=== PATIENT | male | born 1990 | race American Indian/Alaskan Native ===

== ENCOUNTER 2016-12-01 01:54 | Emergency (ER) | payer MEDICAID ==
[2016-12-01 02:01] VITALS: BP 125/91
[2016-12-01] MEDS ORDERED: Ibuprofen 600 MG Tab PO ONE (02:30)
--- NOTE | 2016-12-01 02:36 | EDM.PDOC ---
ED HPI GENERAL MEDICAL PROBLEM - General Chief Complaint: ENT Problem Stated Complaint: EAR PAIN Time Seen by Provider: 12/01/16 02:15 Source of Information: Reports: Patient History Limitations: Reports: No Limitations - History of Present Illness INITIAL COMMENTS - FREE TEXT/NARRATIVE: c/o pain to left ear. Has not taken anything for pain, Has been on Neomycin drops for one week. Pain worse tonight at bedtime. Location: Reports: Other (left ear) Quality: Reports: Pressure, Throbbing Associated Symptoms: Denies: Fever/Chills, Loss of Appetite, Nausea/Vomiting Left Ear Pain Score (Numeric/FACES): 9 - Related Data Allergies Allergy/AdvReac Type Severity Reaction Status Date / Time No Known Allergies Allergy Verified 12/01/16 02:00 Home Meds: Home Meds Hydrocort/Neomycin/Polymyxin B [Cortisporin Otic Susp] 2 drop OT TID 12/01/16 [ History] Past Medical History Cardiovascular History: Reports: Heart Murmur - Infectious Disease History Infectious Disease History: Reports: MRSA Social & Family History - Tobacco Use Smoking Status *Q: Current Every Day Smoker Years of Tobacco use: 10 Packs/Tins Daily: 0.3 Used Tobacco, but Quit: No Second Hand Smoke Exposure: Yes - Caffeine Use Caffeine Use: Reports: Soda - Alcohol Use Days Per Week of Alcohol Use: 6 Number of Drinks Per Day: 36 Total Drinks Per Week: 216 - Recreational Drug Use Recreational Drug Use: Yes Drug Use in Last 12 Months: Yes Recreational Drug Type: Reports: Marijuana/Hashish Recreational Drug Use Frequency: Socially ED ROS ENT - Review of Systems Review Of Systems: See Below Constitutional: Reports: No Symptoms HEENT: Reports: Ear Pain (left ear pain worse tonight at bedtime, has not tried any OTC for pain) Respiratory: Reports: No Symptoms Cardiovascular: Reports: No Symptoms GI/Abdominal: Reports: No Symptoms Neurological: Reports: No Symptoms ED EXAM, ENT - Physical Exam Exam: See Below Exam Limited By: No Limitations General Appearance: Alert, Mild Distress Ears: Hearing Grossly Normal, TM Fluid (mild left). No: Normal Canal (left swollen), Auricular Ecchymosis, Canal Discharge Nose: Normal Inspection Mouth/Throat: Normal Inspection Head: Atraumatic, Normocephalic Neck: Full Range of Motion, Lymphadenopathy (L). No: Lymphadenopathy (R) Respiratory/Chest: No Respiratory Distress, Lungs Clear, Normal Breath Sounds Cardiovascular: Normal Peripheral Pulses, Regular Rate, Rhythm Back: Normal Inspection, Full Range of Motion Extremities: Normal Inspection Neurological: Alert, Oriented Psychiatric: Flat Affect Course - Vital Signs Last Recorded V/S: Last Vital Signs Temp 97.5 F 12/01/16 01:57 Pulse 67 12/01/16 01:57 Resp 18 12/01/16 01:57 BP 125/91 H 12/01/16 01:57 Pulse Ox 97 12/01/16 01:57 - Orders/Labs/Meds Meds: Medications Discontinued Medications Generic Name Dose Route Start Last Admin Trade Name Aleksanderq PRN Reason Stop Dose Admin Ibuprofen 600 mg 12/01/16 02:30 12/01/16 02:35 Motrin PO 12/01/16 02:31 600 mg ONETIME ONE Administration Departure - Departure Time of Disposition: 02:31 Disposition: Home, Self-Care 01 Condition: Good Clinical Impression: Otitis externa Qualifiers: Otitis externa type: unspecified type Chronicity: unspecified Laterality: left Qualified Code(s): H60.92 - Unspecified otitis externa, left ear - Discharge Information Instructions: Otitis Externa, [id number] Forms: ED Department Discharge Additional Instructions: stop neomycin ear drops ofloxacin 0.3% Rx 10 drops daily for one week Alternate tylenol 650mg and ibuprofen 600mg every 4 hours as needed for left ear pain clinic recheck on Monday
== END 2016-12-01 02:39 | disposition home or self-care (01) ==
LOC: DL.ED 01:54
DX: H60.92 Unspecified otitis externa, left ear (principal); F17.210 Nicotine dependence, cigarettes, uncomplicated
CPT/HCPCS: 99282; A9270

== ENCOUNTER 2017-03-11 23:23 | Emergency (ER) | payer MEDICAID ==
[2017-03-11] MEDS ORDERED: Acetaminophen/HYDROcodone 325-10 MG Tab PO ONE (23:24)
[2017-03-11 23:42] VITALS: BP 130/85
[2017-03-11] MEDS ORDERED: Clindamycin HCl 150 MG Cap PO ONE (23:43)
--- NOTE | 2017-03-11 23:46 | EDM.PDOC ---
ED HPI GENERAL MEDICAL PROBLEM - General Chief Complaint: ENT Problem Stated Complaint: EAR ACHE Time Seen by Provider: 03/11/17 23:44 Source of Information: Reports: Patient History Limitations: Reports: No Limitations - History of Present Illness INITIAL COMMENTS - FREE TEXT/NARRATIVE: pain in right ear and jaw and tooth Right Ear Pain Score (Numeric/FACES): 9 - Related Data Allergies Allergy/AdvReac Type Severity Reaction Status Date / Time No Known Allergies Allergy Verified 03/11/17 23:38 Past Medical History HEENT History: Reports: None Cardiovascular History: Reports: Heart Murmur Respiratory History: Reports: None Gastrointestinal History: Reports: None Genitourinary History: Reports: None Musculoskeletal History: Reports: None Neurological History: Reports: None Psychiatric History: Reports: None Endocrine/Metabolic History: Reports: None Hematologic History: Reports: None Immunologic History: Reports: None Oncologic (Cancer) History: Reports: None Dermatologic History: Reports: None - Infectious Disease History Infectious Disease History: Reports: MRSA Social & Family History - Tobacco Use Smoking Status *Q: Light Tobacco Smoker Years of Tobacco use: 5 Packs/Tins Daily: 0.2 Used Tobacco, but Quit: No Second Hand Smoke Exposure: Yes - Caffeine Use Caffeine Use: Reports: Soda - Alcohol Use Days Per Week of Alcohol Use: 6 Number of Drinks Per Day: 36 Total Drinks Per Week: 216 - Recreational Drug Use Recreational Drug Use: No Drug Use in Last 12 Months: Yes Recreational Drug Type: Reports: Marijuana/Hashish Recreational Drug Use Frequency: Socially ED ROS ENT - Review of Systems Review Of Systems: ROS reveals no pertinent complaints other than HPI. ED EXAM, ENT - Physical Exam Exam: See Below Exam Limited By: No Limitations General Appearance: Alert, WD/WN, Mild Distress, Other (tearful) Ears: TM Dullness, TM Erythema, Other (right) Mouth/Throat: Dental Abcess, Dental Pain, Dental Tenderness Head: Atraumatic Neck: Non-Tender, Full Range of Motion Respiratory/Chest: No Respiratory Distress Cardiovascular: Regular Rate, Rhythm GI/Abdominal: Soft, Non-Tender Neurological: Alert, Oriented, Normal Cognition, Normal Gait, No Motor/Sensory Deficits Psychiatric: Tearful Skin: Warm, Dry, Normal Color Lymphatic: No Adenopathy Course - Vital Signs Last Recorded V/S: Last Vital Signs Temp 36.6 C 03/11/17 23:39 Pulse 82 03/11/17 23:39 Resp 16 03/11/17 23:39 BP 130/85 03/11/17 23:39 Pulse Ox 98 03/11/17 23:39 - Orders/Labs/Meds Orders: Active Orders 24 hr Category Date Time Status Clindamycin HCl [Cleocin] Med 03/11/17 23:43 Once 300 mg PO ONETIME ONE Departure - Departure Time of Disposition: 23:45 Disposition: Home, Self-Care 01 Condition: Good Clinical Impression: Dental abscess, Dental caries Otitis media Qualifiers: Otitis media type: suppurative Chronicity: acute Laterality: right Recurrence: not specified as recurrent Spontaneous tympanic membrane rupture: without spontaneous rupture Qualified Code(s): H66.001 - Acute suppurative otitis media without spontaneous rupture of ear drum, right ear - Discharge Information Instructions: Dental Abscess, [id number] Additional Instructions: 1) avoid solid foods 2) see Dentist Monday rx given; clindamycin 150mg qid x 40 vicodin 5/325mg bid prn x 12 - My Orders Last 24 Hours: My Active Orders 03/11/17 23:43 Clindamycin HCl [Cleocin] 300 mg PO ONETIME ONE - Assessment/Plan Last 24 Hours: My Active Orders 03/11/17 23:43 Clindamycin HCl [Cleocin] 300 mg PO ONETIME ONE
[2017-03-11] MEDS ORDERED: Acetaminophen/HYDROcodone 325-10 MG Tab ONE (23:47)
== END 2017-03-11 23:52 | disposition home or self-care (01) ==
LOC: DL.ED 23:23
DX: H66.001 Acute suppurative otitis media without spontaneous rupture of ear drum, right ear (principal); K04.7 Periapical abscess without sinus; K02.9 Dental caries, unspecified; F17.210 Nicotine dependence, cigarettes, uncomplicated
CPT/HCPCS: 99282; A9270

== ENCOUNTER 2017-03-18 11:37 | Emergency (ER) | payer MEDICAID ==
[2017-03-18 12:25] VITALS: BP 120/79
--- NOTE | 2017-03-18 12:59 | EDM.PDOC ---
ED HPI GENERAL MEDICAL PROBLEM - General Chief Complaint: ENT Problem Stated Complaint: RT EAR PAIN Time Seen by Provider: 03/18/17 12:58 Source of Information: Reports: Patient History Limitations: Reports: No Limitations - History of Present Illness INITIAL COMMENTS - FREE TEXT/NARRATIVE: 26 yo [place] Male c/o right ear pain and sinus congestion Onset Date: 03/12/17 Onset Time: 12:00 Duration: Day(s): Location: Reports: Face Quality: Reports: Ache Severity: Moderate Improves with: Reports: None Worsens with: Reports: None Associated Symptoms: Reports: No Other Symptoms Right Ear Pain Score (Numeric/FACES): 8 - Related Data Allergies Allergy/AdvReac Type Severity Reaction Status Date / Time No Known Allergies Allergy Verified 03/18/17 12:23 Home Meds: Home Meds . [No Known Home Meds] 03/18/17 [History] Past Medical History HEENT History: Reports: None Cardiovascular History: Reports: Heart Murmur Respiratory History: Reports: None Gastrointestinal History: Reports: None Genitourinary History: Reports: None Musculoskeletal History: Reports: None Neurological History: Reports: None Psychiatric History: Reports: None Endocrine/Metabolic History: Reports: None Hematologic History: Reports: None Immunologic History: Reports: None Oncologic (Cancer) History: Reports: None Dermatologic History: Reports: None - Infectious Disease History Infectious Disease History: Reports: MRSA Social & Family History - Family History Family Medical History: Noncontributory - Tobacco Use Smoking Status *Q: Light Tobacco Smoker Years of Tobacco use: 5 Packs/Tins Daily: 0.2 Used Tobacco, but Quit: No Second Hand Smoke Exposure: Yes - Caffeine Use Caffeine Use: Reports: Soda - Alcohol Use Days Per Week of Alcohol Use: 6 Number of Drinks Per Day: 36 Total Drinks Per Week: 216 - Recreational Drug Use Recreational Drug Use: No Drug Use in Last 12 Months: Yes Recreational Drug Type: Reports: Marijuana/Hashish Recreational Drug Use Frequency: Socially ED ROS ENT - Review of Systems Review Of Systems: See Below Constitutional: Reports: No Symptoms HEENT: Reports: Ear Pain (right) Respiratory: Reports: No Symptoms Cardiovascular: Reports: No Symptoms Endocrine: Reports: No Symptoms GI/Abdominal: Reports: No Symptoms : Reports: No Symptoms Musculoskeletal: Reports: No Symptoms Skin: Reports: No Symptoms Neurological: Reports: No Symptoms Psychiatric: Reports: No Symptoms Hematologic/Lymphatic: Reports: No Symptoms Immunologic: Reports: No Symptoms ED EXAM, ENT - Physical Exam Exam: See Below Exam Limited By: No Limitations General Appearance: Alert, WD/WN, No Apparent Distress Eye Exam: Bilateral Eye: EOMI, PERRL Ears: Normal External Exam, TM Erythema (right) Nose: Normal Inspection Mouth/Throat: Normal Inspection, Normal Gums Head: Atraumatic, Normocephalic Neck: Normal Inspection, Supple, Non-Tender, Full Range of Motion Respiratory/Chest: No Respiratory Distress, Lungs Clear, Normal Breath Sounds Cardiovascular: Normal Peripheral Pulses, Regular Rate, Rhythm GI/Abdominal: Normal Bowel Sounds Back: Normal Inspection Extremities: Normal Inspection, Normal Range of Motion Neurological: Alert, Oriented, CN II-XII Intact Psychiatric: Normal Affect, Normal Mood Skin: Warm, Dry, Intact, Normal Color Lymphatic: No Adenopathy Course - Vital Signs Last Recorded V/S: Last Vital Signs Temp 36.7 C 03/18/17 12:24 Pulse 64 03/18/17 12:24 Resp 16 03/18/17 12:24 BP 120/79 03/18/17 12:24 Pulse Ox 98 03/18/17 12:24 Departure - Departure Time of Disposition: 13:13 Disposition: Home, Self-Care 01 Condition: Good Clinical Impression: Otitis media Qualifiers: Otitis media type: suppurative Chronicity: acute Laterality: right Recurrence: not specified as recurrent Spontaneous tympanic membrane rupture: without spontaneous rupture Qualified Code(s): H66.001 - Acute suppurative otitis media without spontaneous rupture of ear drum, right ear - Discharge Information Forms: ED Department Discharge Additional Instructions: Rest Increase fluids ( Water / Juice) Take Medication as prescribed only AMOXIL 500mg BID # 20 CLARITIN 10mg QD # 10 F/U w/ PCP
== END 2017-03-18 13:22 | disposition home or self-care (01) ==
LOC: DL.ED 11:37
DX: H66.001 Acute suppurative otitis media without spontaneous rupture of ear drum, right ear (principal); F17.210 Nicotine dependence, cigarettes, uncomplicated
CPT/HCPCS: 99282

== ENCOUNTER 2017-05-03 15:14 | Emergency (ER) | payer MEDICAID ==
--- NOTE | 2017-05-03 15:55 | EDM.PDOC ---
ED HPI GENERAL MEDICAL PROBLEM - General Chief Complaint: General Stated Complaint: LILA [phone] Time Seen by Provider: 05/03/17 15:40 Source of Information: Reports: Patient History Limitations: Reports: No Limitations - History of Present Illness INITIAL COMMENTS - FREE TEXT/NARRATIVE: This 26 yo male patient reports to the ED with an abscess on the right side of his testicles. The patient reports he was originally seen by a provider at the [facility] on Monday (04/28/17) and started on oral antibiotics. The patient reports he has been taking his antibiotics as prescribed. The patient reports the area has been draining since Monday. The patient reports he was advised to come to the ED to have an ultrasound of the area. Onset Date: 04/28/17 Duration: Constant, Improving Location: Reports: Other (right lateral testicle ) Quality: Reports: Ache, Dull Severity: Moderate Improves with: Reports: None Worsens with: Reports: None Associated Symptoms: Reports: No Other Symptoms Right Perineal Area Pain Score (Numeric/FACES): 8 - Related Data Allergies Allergy/AdvReac Type Severity Reaction Status Date / Time No Known Allergies Allergy Verified 03/18/17 12:23 Home Meds: Home Meds Ibuprofen [Motrin Ib] mg PO Q4HR 05/03/17 [History] Sulfamethoxazole/Trimethoprim [Bactrim Ds Tablet] 1 tab PO BID 05/03/17 [History ] Past Medical History HEENT History: Reports: None Cardiovascular History: Reports: Heart Murmur Respiratory History: Reports: None Gastrointestinal History: Reports: None Genitourinary History: Reports: None Musculoskeletal History: Reports: None Neurological History: Reports: None Psychiatric History: Reports: None Endocrine/Metabolic History: Reports: None Hematologic History: Reports: None Immunologic History: Reports: None Oncologic (Cancer) History: Reports: None Dermatologic History: Reports: None - Infectious Disease History Infectious Disease History: Reports: MRSA Social & Family History - Family History Family Medical History: Noncontributory - Tobacco Use Smoking Status *Q: Light Tobacco Smoker Years of Tobacco use: 9 Packs/Tins Daily: 0.1 Used Tobacco, but Quit: No Second Hand Smoke Exposure: Yes - Caffeine Use Caffeine Use: Reports: Soda - Alcohol Use Days Per Week of Alcohol Use: 6 Number of Drinks Per Day: 36 Total Drinks Per Week: 216 - Recreational Drug Use Recreational Drug Use: No Drug Use in Last 12 Months: Yes Recreational Drug Type: Reports: Marijuana/Hashish Recreational Drug Use Frequency: Socially ED ROS GENERAL - Review of Systems Review Of Systems: ROS reveals no pertinent complaints other than HPI. ED EXAM, GENERAL - Physical Exam Exam: See Below Exam Limited By: No Limitations General Appearance: Alert, WD/WN, Mild Distress Eye Exam: Bilateral Eye: EOMI, Normal Inspection, PERRL Ears: Normal External Exam, Normal Canal, Hearing Grossly Normal, Normal TMs Nose: Normal Inspection, Normal Mucosa, No Blood Throat/Mouth: Normal Inspection, Normal Lips, Normal Teeth, Normal Gums, Normal Oropharynx, Normal Voice, No Airway Compromise Head: Atraumatic, Normocephalic Neck: Normal Inspection, Supple, Non-Tender, Full Range of Motion Respiratory/Chest: No Respiratory Distress, Lungs Clear, Normal Breath Sounds, No Accessory Muscle Use, Chest Non-Tender Cardiovascular: Normal Peripheral Pulses, Regular Rate, Rhythm, No Edema, No Gallop, No JVD, No Murmur, No Rub GI/Abdominal: Normal Bowel Sounds, Soft, Non-Tender, No Organomegaly, No Distention, No Abnormal Bruit, No Mass (Male) Exam: No Hernia, Circumcised, Scrotum Tenderness (R), Other (The patient has some induration, but no current drainage from the area. ) Rectal (Males) Exam: Deferred Back Exam: Normal Inspection, Full Range of Motion, NT Extremities: Normal Inspection, Normal Range of Motion, Non-Tender, Normal Capillary Refill, No Pedal Edema Neurological: Alert, Oriented, CN II-XII Intact, Normal Cognition, Normal Gait, Normal Reflexes, No Motor/Sensory Deficits Psychiatric: Normal Affect, Normal Mood Skin Exam: Warm, Dry, Intact, Normal Color, No Rash Lymphatic: No Adenopathy Course - Vital Signs Last Recorded V/S: Last Vital Signs Temp 36.8 C 05/03/17 17:44 Pulse 63 05/03/17 17:44 Resp 16 05/03/17 17:44 BP 107/55 L 05/03/17 17:44 Pulse Ox 98 05/03/17 17:44 - Orders/Labs/Meds Orders: Active Orders 24 hr Category Date Time Status Vancomycin [Vancocin] 1 gm Med 05/03/17 16:35 Active Sodium Chloride 0.9% [Normal Saline] 250 ml IV ONETIME Medication Orders Vancomycin HCl 1 gm/ Sodium (Chloride) 250 mls @ 167 mls/hr IV ONETIME ONE Stop: 05/03/17 18:04 Last Admin: 05/03/17 16:41 Dose: 167 mls/hr Labs: Laboratory Tests 05/03/17 05/03/17 Range/Units 15:55 15:55 WBC 7.8 (5.0-10.0) 10^3/uL RBC 5.05 (4.6-6.2) 10^6/uL Hgb 14.5 D (14.0-18.0) g/dL Hct 43.9 (40.0-54.0) % MCV 86.9 D (80-100) fL MCH 28.7 (27.0-34.0) pg MCHC 33.0 (33.0-35.0) g/dL Plt Count 421 D (150-450) 10^3/uL Neut % (Auto) 56.7 (42.2-75.2) % Lymph % (Auto) 25.5 (20.5-50.1) % Sunflower % (Auto) 14.2 H (2-8) % Eos % (Auto) 2.8 (1.0-3.0) % Baso % (Auto) 0.8 (0.0-1.0) % Add Manual Diff Yes Neutrophils % (Manual) 52 (42-75) % Lymphocytes % (Manual) 34 (20-50) % Monocytes % (Manual) 12 H (2-8) % Eosinophils % (Manual) 2 (1-3) % Sodium 137 (135-145) mmol/L Potassium 3.9 (3.6-5.0) mmol/L Chloride 102 (101-111) mmol/L Carbon Dioxide 26.0 (21.0-31.0) mmol/L Anion Gap 12.9 BUN 12 (7-18) mg/dL Creatinine 0.6 (0.6-1.3) mg/dL Est Cr Clr Drug Dosing 156.22 mL/min Estimated GFR (MDRD) > 60 BUN/Creatinine Ratio 20.00 Glucose 96 (74-105) mg/dL Calcium 8.6 (8.4-10.2) mg/dl Total Bilirubin 0.3 (0.2-1.0) mg/dL AST 25 (10-42) IU/L ALT 23 (10-60) IU/L Alkaline Phosphatase 87 (42-121) IU/L Total Protein 7.1 (6.7-8.2) g/dl Albumin 3.7 (3.2-5.5) g/dl Globulin 3.4 Albumin/Globulin Ratio 1.09 Meds: Medications Generic Name Dose Route Start Last Admin Trade Name Freq PRN Reason Stop Dose Admin Vancomycin HCl 1 gm/ Sodium 250 mls @ 167 mls/hr 05/03/17 16:35 05/03/17 16: 41 Chloride IV 05/03/17 18:04 167 mls/hr ONETIME ONE Administration Departure - Departure Time of Disposition: 18:03 Disposition: Home, Self-Care 01 Condition: Fair Clinical Impression: Abscess of right groin - Discharge Information Instructions: Abscess, [id number] Forms: ED Department Discharge Care Plan Goals: The patient was advised of the examination and lab results during the visit. The patient was given an IV dose of Vancomycin while in the ED. The patient was encouraged to follow-up with his primary care facility for continued evaluation and further treatment. If the patient has any additional symptoms or concerns, the patient should visit his primary care facility or return to the emergency department. - My Orders Last 24 Hours: My Active Orders 05/03/17 16:35 Vancomycin [Vancocin] 1 gm Sodium Chloride 0.9% [Normal Saline] 250 ml IV ONETIME - Assessment/Plan Last 24 Hours: My Active Orders 05/03/17 16:35 Vancomycin [Vancocin] 1 gm Sodium Chloride 0.9% [Normal Saline] 250 ml IV ONETIME
[2017-05-03 16:20] LABS: CHLORIDE,CL 102 mmol/L (101-111); SODIUM,NA 137 mmol/L (135-145)
[2017-05-03 18:20] VITALS: BP 122/72
== END 2017-05-03 18:19 | disposition home or self-care (01) ==
LOC: DL.ED 15:14
DX: L02.214 Cutaneous abscess of groin (principal); F17.210 Nicotine dependence, cigarettes, uncomplicated
CPT/HCPCS: 36415; 80053; 85025; 96365; 99283; J3370; J7050

== ENCOUNTER 2020-03-28 14:20 | Emergency (ER) | payer SELFPAY ==
[2020-03-28 15:09] VITALS: BP 141/97; PULSE 82
[2020-03-28 15:35] LABS: CHLORIDE,CL 105 mmol/L (98-107); SODIUM,NA 139 mmol/L (136-145)
--- NOTE | 2020-03-30 08:01 | CR ---
PROCEDURE INFORMATION: Exam: XR Left Ribs with PA Chest, 3 Views Exam date and time: 03/28/2020 2:44 PM Age: 29 years old Clinical indication: Other: Arrow montiel area of pain; Additional info: Fall down stairs TECHNIQUE: Imaging protocol: XR Left ribs 3 views with PA chest. COMPARISON: CR Chest 1V Frontal 07/21/2016 5:17 PM FINDINGS: Lungs: Unremarkable. No consolidation. Pleural space: Unremarkable. No pleural effusion. No pneumothorax. Heart/Mediastinum: Unremarkable. No cardiomegaly. Bones/joints: Unremarkable. IMPRESSION: No acute findings.
== END 2020-03-28 16:10 | disposition home or self-care (01) ==
LOC: DL.ED 14:20
DX: S20.211A Contusion of right front wall of thorax, initial encounter (principal); S20.212A Contusion of left front wall of thorax, initial encounter; W50.3XXA Accidental bite by another person, initial encounter
CPT/HCPCS: 36415; 71101-LT; 80053; 84484; 85025; 93005; 99282; 99285-25

== ENCOUNTER 2021-08-26 19:04 | Emergency (ER) | payer BC, MEDICAID ==
[2021-08-26 19:25] VITALS: BP 133/91; PULSE 62
[2021-08-26] MEDS ORDERED: Azithromycin 250 MG Tab PO ONE (19:33)
== END 2021-08-26 19:46 | disposition home or self-care (01) ==
LOC: DL.ED 19:04
DX: J02.9 Acute pharyngitis, unspecified (principal); H65.91 Unspecified nonsuppurative otitis media, right ear; Z88.0 Allergy status to penicillin; Z72.0 Tobacco use
CPT/HCPCS: 87081; 87430; 99283; A9270

== ENCOUNTER 2022-01-10 21:03 | Emergency (ER) | payer BC, MEDICAID ==
[2022-01-10 21:15] VITALS: BP 135/101; PULSE 63
[2022-01-10] MEDS ORDERED: Lidocaine 1% 5 ML VIAL INJECT ONE (21:25)
[2022-01-10] MEDS ORDERED: Bacitracin Oint 1 GM U/D Packet TOP ONE (21:25)
[2022-01-10 22:03] LABS: ANION GAP 12.7 mEq/L (7-13)
== END 2022-01-10 23:50 | disposition home or self-care (01) ==
LOC: DL.ED 21:03
DX: L03.115 Cellulitis of right lower limb (principal); Z88.0 Allergy status to penicillin; W57.XXXA Bitten or stung by nonvenomous insect and other nonvenomous arthropods, initial encounter
CPT/HCPCS: 10060; 36415; 80053; 83605; 85025; 87040; 87070; 87205; 96365; 99283; J3370; J7050; 87077; 87186

== ENCOUNTER 2023-09-18 13:23 | Inpatient (IN) | payer MEDICAID ==
[2023-09-18] MEDS: LORazepam 2 MG/ML SDV IVPUSH ONE (14:02)
[2023-09-18] MEDS: Ondansetron 4 MG/2 ML SDV IV ONE (14:02)
[2023-09-18] MEDS: Magnesium Sulfate/Water 2 GM in Premix Bag 1 BAG IV ONE (14:03)
[2023-09-18 14:08] LABS: BASOPHILS PERCENT AUTO 0.8 % (0.0-1.0); HEMATOCRIT 51.9 % (40.0-54.0); HEMOGLOBIN 17.8 g/dL (14.0-18.0); LYMPHOCYTES PERCENT AUTO 23.8 % (20.5-50.1); MEAN CORPUSCULAR HEMOGLOBIN 28.8 pg (27.0-34.0); MEAN CORPUSCULAR HGB CONC 34.3 g/dL (33.0-35.0); MEAN CORPUSCULAR VOLUME 84.1 fL (80-100); MONOCYTES PERCENT AUTO 8.6 % (2-8); NEUTROPHILS PERCENT AUTO 65.8 % (42.2-75.2); PLATELET COUNT,PLT 294 10^3/uL (150-450); RED BLOOD CELL COUNT 6.17 10^6/uL (4.6-6.2); WHITE BLOOD CELL COUNT,WBC 7.7 10^3/uL (5.0-10.0)
[2023-09-18 14:23] LABS: PROTHROMBIN TIME 10.1 SEC (9.0-12.0); PTT,PARTIAL THROMBOPLSTIN TIME 21.8 SEC (22.0-34.0)
[2023-09-18 14:30] LABS: LACTIC ACID 5.7 mmol/L (0.4-2.0)
[2023-09-18 14:33] LABS: A/G RATIO 0.8; ALANINE AMINOTRANSFERASE,ALT 89 U/L (16-63); ALBUMIN 4.1 g/dL (3.4-5.0); ALKALINE PHOSPHATASE 177 U/L (46-116); ANION GAP 23.6 mEq/L (7-13); ASPARTATE AMNIOTRANSFERASE,AST 115 U/L (15-37); BILIRUBIN TOTAL 1.8 mg/dL (0.2-1.0); BLOOD UREA NITROGEN,BUN 16 mg/dL (7-18); BUN/CREATININE RATIO 19.5 (No establ ref range); CALCIUM 8.5 mg/dL (8.5-10.1); CARBON DIOXIDE,CO2 23 mmol/L (21-32); CHLORIDE,CL 99 mmol/L (98-107); CREATININE 0.82 mg/dL (0.70-1.30); EST CRCL DRUG DOSING (CG) 110.36 mL/min; GLUCOSE RANDOM 92 mg/dL (70-99); LIPASE 27 U/L (16-77); MAGNESIUM 1.7 mg/dL (1.8-2.4); POTASSIUM,K 3.6 mmol/L (3.5-5.1); PROTEIN TOTAL,TP 9.2 g/dL (6.4-8.2); SODIUM,NA 142 mmol/L (136-145)
[2023-09-18 14:35] LABS: ESTIMATED GFR 120 mL/min (>=60)
[2023-09-18] MEDS: MVI, Adult with Vitamin K 10 ML, Thiamine 100 MG, Folic Acid 1 MG in Lactated Ringers 1... IV ONE (14:35)
[2023-09-18] MEDS: Sodium Chloride 0.9% 10 ML Syringe FLUSH PRN (14:36)
[2023-09-18 14:48] LABS: KETONES,BLOOD NEGATIVE
[2023-09-18] MEDS ORDERED: Ondansetron 4 MG/2 ML SDV IVPUSH PRN (18:17)
[2023-09-18] MEDS ORDERED: Polyethylene Glycol 3350 Powder 17 GM Packet PO PRN (18:17)
[2023-09-18] MEDS ORDERED: Temazepam 15 MG Cap PO PRN (18:17)
[2023-09-18] MEDS ORDERED: LORazepam 2 MG/ML SDV IV PRN (18:26)
[2023-09-18] MEDS: Sodium Chloride 0.9% 1,000 ML IV SCH (19:38)
[2023-09-18] MEDS: Heparin Sodium 5,000 Units/ML Vial SUBCUT SCH (21:41)
[2023-09-19] MEDS: Pantoprazole 40 MG Tab.CR PO SCH (05:24)
[2023-09-19 05:46] LABS: BENZODIAZEPINE,URINE POSITIVE (NEGATIVE); MDMA (ECSTASY), URINE NEGATIVE (NEGATIVE); METHADONE,URINE NEGATIVE (NEGATIVE); METHAMPHETAMINES,URINE POSITIVE (NEGATIVE); OPIATES,URINE NEGATIVE (NEGATIVE)
[2023-09-19 05:47] LABS: AMPHETAMINES,URINE NEGATIVE (NEGATIVE); BARBITURATES,URINE NEGATIVE (NEGATIVE); OXYCODONE,URINE NEGATIVE (NEGATIVE); PHENCYCLIDINE,URINE NEGATIVE (NEGATIVE); TCA,URINE NEGATIVE (NEGATIVE)
[2023-09-19 05:50] LABS: APPEARANCE,URINE CLEAR (CLEAR); BILIRUBIN,URINE NEGATIVE (NEGATIVE); COLOR,URINE YELLOW (YELLOW); GLUCOSE,URINE NEGATIVE (NEGATIVE); KETONES,URINE 80 (NEGATIVE); LEUKOCYTE ESTERASE,URINE NEGATIVE (NEGATIVE); NITRITE,URINE NEGATIVE (NEGATIVE); OCCULT BLOOD,URINE NEGATIVE (NEGATIVE); PROTEIN,URINE TRACE (NEGATIVE); UROBILINOGEN,URINE 0.2 mg/dL (0.2-1.0)
[2023-09-19 06:33] LABS: BASOPHILS PERCENT AUTO 0.8 % (0.0-1.0); EOSINOPHILS PERCENT AUTO 2.3 % (1.0-3.0); HEMATOCRIT 42.3 % (40.0-54.0); HEMOGLOBIN 14.1 g/dL (14.0-18.0); LYMPHOCYTES PERCENT AUTO 21.1 % (20.5-50.1); MEAN CORPUSCULAR HGB CONC 33.3 g/dL (33.0-35.0); MEAN CORPUSCULAR VOLUME 86.9 fL (80-100); MONOCYTES PERCENT AUTO 10.6 % (2-8); NEUTROPHILS PERCENT AUTO 65.2 % (42.2-75.2); PLATELET COUNT,PLT 191 10^3/uL (150-450); RED BLOOD CELL COUNT 4.87 10^6/uL (4.6-6.2); WHITE BLOOD CELL COUNT,WBC 5.3 10^3/uL (5.0-10.0)
[2023-09-19 06:44] LABS: BACTERIA,URINE RARE /HPF (0-FEW/HPF); EPITHELIAL CELLS,URINE RARE /HPF (NOT SEEN); MUCUS,URINE FEW /LPF (NOT SEEN); RBC,URINE 0-5 /HPF (0-5); WBC,URINE 0-5 /HPF (0-5/HPF)
[2023-09-19 06:55] LABS: A/G RATIO 0.74; ALBUMIN 2.8 g/dL (3.4-5.0); ANION GAP 15.3 mEq/L (7-13); BILIRUBIN TOTAL 2.5 mg/dL (0.2-1.0); BUN/CREATININE RATIO 28.8 (No establ ref range); CALCIUM 7.4 mg/dL (8.5-10.1); CREATININE 0.59 mg/dL (0.70-1.30); EST CRCL DRUG DOSING (CG) 150.51 mL/min; MAGNESIUM 1.8 mg/dL (1.8-2.4); POTASSIUM,K 3.3 mmol/L (3.5-5.1); PROTEIN TOTAL,TP 6.6 g/dL (6.4-8.2)
[2023-09-19] MEDS: Potassium Chloride 10 MEQ Tab.ER PO ONE (08:07)
[2023-09-19] MEDS: Multivitamin Tab PO SCH (08:07)
[2023-09-19] MEDS: Thiamine 100 MG Tab PO SCH (08:07)
[2023-09-19 12:06] VITALS: BP 131/81; PULSE 71
[2023-09-20 12:47] LABS: C.TRACHOMATIS BY TMA Negative (Negative); M GENITALIUM Negative (Negative); M GENITALIUM SOURCE Urine; N.GONORRHOEAE BY TMA Negative (Negative); SOURCE Urine
== END 2023-09-19 14:15 | disposition home or self-care (01) | DRG 897 ==
LOC: DL.ED 13:23 → DL.MS 14:38 → DL.ED 17:34
PROVIDERS: ADMIT Family Medicine Adult Medicine; ATTEND Family Medicine Adult Medicine
DX: F10.239 Alcohol dependence with withdrawal, unspecified (principal); E87.20 Acidosis, unspecified; F10.229 Alcohol dependence with intoxication, unspecified; E86.0 Dehydration; K29.20 Alcoholic gastritis without bleeding; Z88.0 Allergy status to penicillin; Z79.899 Other long term (current) drug therapy
CPT/HCPCS: 36415; 80053; 80305-QW; 80307; 81001; 82009; 83605; 83690; 83735; 84100; 84443; 85025; 85610; 85730; 87491; 87563; 87591; 96365; 96366; 96368; 96375; 99222; 99238; 99284; 99285-25; A9270-GY; J1644; J2060; J2405; J3411; J3475; J3490; J7030; J7120

== ENCOUNTER 2024-06-01 16:23 | Emergency (ER) | payer MEDICAID ==
[2024-06-01] MEDS: Ondansetron 4 MG Tab.DIS PO ONE (16:56)
[2024-06-01] MEDS: Ketorolac 30 MG/ML SDV IM ONE (16:56)
[2024-06-01 17:03] LABS: BASOPHILS PERCENT AUTO 0.5 % (0.0-1.0); EOSINOPHILS PERCENT AUTO 0.2 % (1.0-3.0); HEMATOCRIT 46.4 % (40.0-54.0); HEMOGLOBIN 15.9 g/dL (14.0-18.0); MEAN CORPUSCULAR HEMOGLOBIN 27.8 pg (27.0-34.0); MEAN CORPUSCULAR HGB CONC 34.3 g/dL (33.0-35.0); MEAN CORPUSCULAR VOLUME 81.3 fL (80-100); MONOCYTES PERCENT AUTO 7.6 % (2-8); NEUTROPHILS PERCENT AUTO 77.7 % (42.2-75.2); PLATELET COUNT,PLT 269 10^3/uL (150-450); RED BLOOD CELL COUNT 5.71 10^6/uL (4.6-6.2); WHITE BLOOD CELL COUNT,WBC 6.6 10^3/uL (5.0-10.0)
[2024-06-01 17:29] LABS: A/G RATIO 0.9; ALANINE AMINOTRANSFERASE,ALT 75 U/L (16-63); ALBUMIN 3.9 g/dL (3.4-5.0); ALKALINE PHOSPHATASE 142 U/L (46-116); ANION GAP 16.7 mEq/L (7-13); ASPARTATE AMNIOTRANSFERASE,AST 47 U/L (15-37); BILIRUBIN TOTAL 1.8 mg/dL (0.2-1.0); BLOOD UREA NITROGEN,BUN 13 mg/dL (7-18); BUN/CREATININE RATIO 18.6 (No establ ref range); CALCIUM 8.3 mg/dL (8.5-10.1); CARBON DIOXIDE,CO2 28 mmol/L (21-32); CHLORIDE,CL 98 mmol/L (98-107); EST CRCL DRUG DOSING (CG) 125.68 mL/min; GLUCOSE RANDOM 94 mg/dL (70-99); MAGNESIUM 1.4 mg/dL (1.8-2.4); POTASSIUM,K 3.7 mmol/L (3.5-5.1); PROTEIN TOTAL,TP 8.2 g/dL (6.4-8.2); SODIUM,NA 139 mmol/L (136-145)
[2024-06-01 17:38] LABS: C-REACTIVE PROTEIN < 0.50 ng/dL (<=0.50); ESTIMATED GFR 125 mL/min (>=60)
[2024-06-01] MEDS: Take Home: Ondansetron 4 MG Tab.DIS, 5 Tab Pack PO ONE (17:48)
[2024-06-01 17:51] VITALS: BP 157/103; PULSE 72
== END 2024-06-01 17:57 | disposition home or self-care (01) ==
LOC: DL.ED 16:23
DX: B34.9 Viral infection, unspecified (principal); Z88.0 Allergy status to penicillin; Z79.899 Other long term (current) drug therapy
CPT/HCPCS: 80053; 83735; 85025; 86140; 87428; 96372; 99282; 99284; A9270; J1885; Q0162